=== PATIENT | female | born 1965 | race Caucasian/White ===

== ENCOUNTER → 2016-06-03 | Outpatient (CLI) | payer BC | LOC: LAB 12:01 | PROVIDERS: ATTEND Family Medicine | DX: K52.9 Noninfective gastroenteritis and colitis, unspecified (principal); Z86.19 Personal history of other infectious and parasitic diseases | CPT/HCPCS: 87046; 87077; 87186; 87205; 87328; 87329; 87493 ==

== ENCOUNTER → 2016-11-03 | Outpatient (CLI) | payer BC ==
--- NOTE | 2016-11-03 13:34 | DI ---
RIGHT ANKLE, 11/03/2016 12:30 PM: Clinical History: Right ankle swelling. Previous Exam: None at this facility. 3 views are submitted. There is soft tissue swelling over the anteromedial aspect of the distal half of the lower leg. There is no fracture or dislocation. No ankle effusion is present. Bony spurs are p resent at the attachment of the Achilles tendon and the plantar fascia to the calcaneus. Reading: There is soft tissue swelling in the lower leg, but the examination is otherwise normal.
== END ==
LOC: MOB RAD 12:31
DX: M25.571 Pain in right ankle and joints of right foot (principal); M25.471 Effusion, right ankle
CPT/HCPCS: 73610